=== PATIENT | female | born 1950 | race Two or more races ===

== ENCOUNTER 2017-08-14 08:18 | Outpatient (CLI) | payer OTHER | END 2017-08-14 08:23 | disposition home or self-care (01) | LOC: RAD 501 08:18 | DX: M26.622 Arthralgia of left temporomandibular joint (principal) ==

== ENCOUNTER 2018-05-23 07:19 | Outpatient (CLI) | payer OTHER | END 2018-05-23 07:22 | disposition home or self-care (01) | LOC: MAMO-SONO 07:19 → MAMO 607 08:15 | DX: Z12.31 Encounter for screening mammogram for malignant neoplasm of breast (principal); Z87.898 Personal history of other specified conditions; N60.01 Solitary cyst of right breast; N60.02 Solitary cyst of left breast; N63.10 Unspecified lump in the right breast, unspecified quadrant; N63.20 Unspecified lump in the left breast, unspecified quadrant ==

== ENCOUNTER 2018-06-25 07:42 | Outpatient (CLI) | payer OTHER | END 2018-06-25 17:00 | disposition home or self-care (01) | LOC: SONOGRAMA 07:42 → MAMO-SONO 07:45 → SONOGRAMA 17:00 | DX: E04.2 Nontoxic multinodular goiter (principal) ==

== ENCOUNTER 2018-09-10 07:30 | Outpatient (CLI) | payer OTHER | END 2018-09-10 07:34 | disposition home or self-care (01) | LOC: SONOGRAMA 07:30 → MAMO-SONO 07:45 | DX: N28.1 Cyst of kidney, acquired (principal) ==

== ENCOUNTER 2019-05-20 11:14 | Outpatient (CLI) | payer OTHER | END 2019-05-20 12:22 | disposition home or self-care (01) | LOC: RAD 11:14 | DX: N20.1 Calculus of ureter (principal); Z87.442 Personal history of urinary calculi ==

== ENCOUNTER 2020-06-01 07:30 | Outpatient (CLI) | payer OTHER | END 2020-06-01 07:32 | disposition home or self-care (01) | LOC: MAMO-SONO 07:30 | PROVIDERS: ATTEND Internal Medicine | DX: Z12.31 Encounter for screening mammogram for malignant neoplasm of breast (principal); N64.59 Other signs and symptoms in breast ==

== ENCOUNTER 2020-11-20 12:51 | Emergency (ER) | payer OTHER ==
[~2020-11-20] VITALS: Ht 167.6 cm; Wt 103.4 kg
[2020-11-20] MEDS ORDERED: SYNTHROID112 MCG PO (13:06)
[2020-11-20] MEDS ORDERED: METFORMIN HCL500 M4 PO (13:06)
[2020-11-20] MEDS ORDERED: ROSUVASTATIN CAL5 MG PO (13:06)
[2020-11-20] MEDS ORDERED: FAMOTIDINE20 MG PO (13:07)
[2020-11-20] MEDS ORDERED: METOCLOPRAMIDE10 MG PO (18:37)
== END 2020-11-20 18:50 | disposition home or self-care (01) ==
LOC: ER 12:51
DX: R10.31 Right lower quadrant pain (principal)

== ENCOUNTER 2022-09-22 08:53 | Outpatient (CLI) | payer OTHER ==
[~2022-09-22 08:53] MED LIST: FAMOTIDINE20 MG PO; METFORMIN HCL500 M4 PO; METOCLOPRAMIDE10 MG PO; ROSUVASTATIN CAL5 MG PO; SYNTHROID112 MCG PO
== END 2022-09-22 08:58 | disposition home or self-care (01) ==
LOC: NUCLEAR 08:53
PROVIDERS: ATTEND Physical Medicine & Rehabilitation
DX: I87.2 Venous insufficiency (chronic) (peripheral) (principal)

== ENCOUNTER 2022-09-26 08:30 | Outpatient (CLI) | payer OTHER | END 2022-09-26 08:35 | disposition home or self-care (01) | LOC: NUCLEAR 08:30 | PROVIDERS: ATTEND Physical Medicine & Rehabilitation | DX: I70.219 Atherosclerosis of native arteries of extremities with intermittent claudication, unspecified extremity (principal) ==

== ENCOUNTER 2022-10-06 07:20 | Outpatient (CLI) | payer OTHER | END 2022-10-06 12:43 | disposition home or self-care (01) | LOC: MAMO-SONO 07:20 | DX: Z12.31 Encounter for screening mammogram for malignant neoplasm of breast (principal); N64.0 Fissure and fistula of nipple ==

== ENCOUNTER 2023-05-12 09:12 | Outpatient (CLI) | payer OTHER | END 2023-05-12 09:29 | disposition home or self-care (01) | LOC: RAD 09:12 | PROVIDERS: ATTEND Physical Medicine & Rehabilitation | DX: M25.511 Pain in right shoulder (principal) ==

== ENCOUNTER → 2024-05-28 | Outpatient (CLI) | payer OTHER | END | disposition home or self-care (01) | LOC: MAMO-SONO 07:39 | PROVIDERS: ATTEND Internal Medicine | DX: N60.11 Diffuse cystic mastopathy of right breast (principal); N60.12 Diffuse cystic mastopathy of left breast; Z12.31 Encounter for screening mammogram for malignant neoplasm of breast ==

== ENCOUNTER 2024-06-21 08:38 | Outpatient (CLI) | payer OTHER | END 2024-06-21 08:43 | disposition home or self-care (01) | LOC: SONOGRAMA 08:38 | PROVIDERS: ATTEND Physical Medicine & Rehabilitation | DX: M25.511 Pain in right shoulder (principal); M25.512 Pain in left shoulder ==

== ENCOUNTER 2024-09-27 07:37 | Outpatient (CLI) | payer OTHER | END 2024-09-27 07:40 | disposition home or self-care (01) | LOC: SONOGRAMA 07:37 | PROVIDERS: ATTEND Family Medicine | DX: R10.9 Unspecified abdominal pain (principal) ==

== ENCOUNTER 2024-10-23 07:24 | Outpatient (CLI) | payer OTHER | END 2024-10-23 07:27 | disposition home or self-care (01) | LOC: MRI 07:24 | PROVIDERS: ATTEND Internal Medicine Gastroenterology | DX: K31.84 Gastroparesis (principal); R10.10 Upper abdominal pain, unspecified; Z12.11 Encounter for screening for malignant neoplasm of colon; R11.0 Nausea; K21.9 Gastro-esophageal reflux disease without esophagitis; K83.8 Other specified diseases of biliary tract; K30 Functional dyspepsia | CPT/HCPCS: 74183; Q9965 ==

== ENCOUNTER 2025-05-14 07:08 | Outpatient (CLI) | payer OTHER | END 2025-05-14 07:13 | disposition home or self-care (01) | LOC: NUCLEAR 07:08 | PROVIDERS: ATTEND Internal Medicine | DX: K31.84 Gastroparesis (principal); E11.43 Type 2 diabetes mellitus with diabetic autonomic (poly)neuropathy | CPT/HCPCS: 78264; A9541 ==